=== PATIENT | male | born 1975 | race Asian ===

== ENCOUNTER → 2021-10-23 16:22 | Outpatient (CLI) | payer OTHER, SELFPAY ==
[2021-10-23 17:20] LABS: Hematocrit 34.5 % (41-53); Hemoglobin 10.9 g/dL (13.5-17.5); Mean Corpuscular HGB Conc 31.5 % (30-36); Mean Corpuscular Hemoglobin 21.4 PG (26-34); Mean Corpuscular Volume 67.8 fL (80-100); Platelet Count 360 X10^3/uL (150-400); Red Blood Cell Count 5.08 X10^6/uL (4.5-5.9); Red Cell Distribution Width 19.7 % (11.6-14.8); White Blood Cell Count 5.5 X10^3/uL (4.5-11.0)
[2021-10-23 17:38] LABS: HEMOLYSIS < 15 (0-50); Iron 36 ug/dL (49-181)
[2021-10-23 17:41] LABS: Alanine Aminotransferase 36 IU/L (<50); Albumin 4.4 g/dL (3.5-5.0); Albumin Globulin Ratio 1.4 (1.0-2.8); Alkaline Phosphatase 54 U/L (38-126); Aspartate Aminotransferase 36 IU/L (17-59); BUN Creatinine Ratio 12.3 (6-22); Bilirubin Total 0.3 mg/dL (0.2-1.3); Blood Urea Nitrogen 13 mg/dL (9-20); Calcium 8.6 mg/dL (8.4-10.2); Carbon Dioxide 29 mmol/L (22-32); Chloride 106 mmol/L (98-107); Cholesterol 186 mg/dL (140-199); Estimated Glomerular Filt Rate > 60 mL/min (>60); Globulin 3.1 g/dL (1.7-4.1); Glucose 89 mg/dL (70-100); HDL Cholesterol 38 mg/dL (40-60); HEMOLYSIS < 15 (0-50); LDL Cholesterol Calculated 120 mg/dL (<100); Potassium 4.3 mmol/L (3.4-5.1); Sodium 139 mmol/L (137-145); Total Protein 7.5 g/dL (6.3-8.2); Triglycerides 138 mg/dL (35-150)
[2021-10-23 17:48] LABS: Percent Iron Saturation 8 % (20-50); Total Iron Binding Capacity 475 ug/dL (261-462); Transferrin 339 mg/dL (206-381)
[2021-10-23 18:11] LABS: TSH w/ Reflex to FT4 1.52 uIU/mL (0.47-4.68)
[2021-10-23 18:17] LABS: Ferritin 5 ng/mL (18-464)
== END ==
PROVIDERS: PCP Internal Medicine; Referring Provider Internal Medicine; Visit Provider Internal Medicine
DX: D64.9 Anemia, unspecified (principal); K64.4 Residual hemorrhoidal skin tags; K92.2 Gastrointestinal hemorrhage, unspecified; Z00.00 Encounter for general adult medical examination without abnormal findings
CPT/HCPCS: 36415; 80053; 80061; 82728; 83540; 83550; 84443; 85027

== ENCOUNTER → 2022-03-05 11:01 | Outpatient (CLI) | payer OTHER, SELFPAY ==
[2022-03-05 11:33] LABS: Hematocrit 37.9 % (41-53); Hemoglobin 12.3 g/dL (13.5-17.5); Mean Corpuscular HGB Conc 32.5 % (30-36); Mean Corpuscular Hemoglobin 24.4 PG (26-34); Mean Corpuscular Volume 74.9 fL (80-100); Platelet Count 274 X10^3/uL (150-400); Red Blood Cell Count 5.06 X10^6/uL (4.5-5.9); White Blood Cell Count 4.7 X10^3/uL (4.5-11.0)
[2022-03-05 12:14] LABS: Ferritin 22 ng/mL (18-464); Testosterone 125 ng/dL (132-813)
[2022-03-05 12:21] LABS: HEMOLYSIS < 15 (0-50); Iron 62 ug/dL (49-181)
[2022-03-05 12:28] LABS: Transferrin 328 mg/dL (206-381); Vitamin B12 326 pg/mL (239-931)
[2022-03-05 12:38] LABS: Percent Iron Saturation 14 % (20-50); Total Iron Binding Capacity 433 ug/dL (261-462)
== END ==
PROVIDERS: PCP Internal Medicine; Referring Provider Internal Medicine; Visit Provider Internal Medicine
DX: D50.9 Iron deficiency anemia, unspecified (principal); K62.5 Hemorrhage of anus and rectum; K64.4 Residual hemorrhoidal skin tags
CPT/HCPCS: 36415; 82607; 82728; 83540; 83550; 84403; 85027

== ENCOUNTER → 2022-04-23 09:09 | Outpatient (CLI) | payer OTHER, SELFPAY ==
[2022-04-23 11:15] LABS: COVID19 -Nasal RAPID Negative (Negative)
== END ==
PROVIDERS: PCP Internal Medicine; Visit Provider Surgery
DX: Z01.812 Encounter for preprocedural laboratory examination (principal); Z20.822 Contact with and (suspected) exposure to COVID-19
CPT/HCPCS: 87635; C9803

== ENCOUNTER 2022-04-24 10:38 | Day surgery (SDC) | payer OTHER, SELFPAY ==
--- NOTE | 2022-04-24 | PATH_ITS ---
[facility] Accession Number: [id number] . 01 Material submitted: . rectum - RECTAL POLYP . 01 Diagnosis: Rectum, Polyp, Biopsy: Hyperplastic polyp. JNL 04/27/20222037 Local . 01 Electronically signed: . Briana Griffin MD, Pathologist NPI- [id number] . 01 Gross description: . RECTAL POLYP: Received in formalin is 1 fragment(s) of renae, soft tissue measuring 0.2 x 0.2 x 0.2 cm submitted entirely in 1 cassette(s) /CPE 04/25/2022 0704 Local . 01 Pathologist provided ICD-10: K62.1 . 01 CPT . 373292 Specimen Comment: A courtesy copy of this report has been sent to [facility] Pathology Performed at: 01 [facility] Cytology [address] [place] [address] [id number] MD Sami Mullins MD Phone: [phone]
[2022-04-24 11:14] VITALS: BP 131/86; PULSE 74; RESP 16; TEMP 36.6; O2SAT 97; BMI 34.5
[2022-04-24] MEDS: LACTATED RINGERS 1,000 ML 100 ML IV (11:23)
--- NOTE | 2022-04-24 11:42 | PM.HP.1 ---
History of Present Illness History of Present Illness Chief complaint: Colonoscopy Narrative: Mr. Hutchinson was seen in my office on 03/17/22. You may refer to this for further information. Nothing is changed in his health since then and briefly: he discussed with me that he has had bleeding per rectum for many years he [place]. Nothing was ever identified during workup. He is continuing to have the bleeding it is generally bright red blood describes it as ?a lot? of blood. Comes out in clots or mixed in with the stool. He says in fact that he has been having bleeding since last night along with the prep. He denies abdominal pain with the bleeding but on occasion it is there is some rectal discomfort. He has no family history of colon cancer. Patient History Medical History Encounter for general adult medical examination without abnormal findings GI bleed (~2007) Hemorrhoids Iron deficiency anemia Obesity (BMI 30.0-34.9) Family & Social History Family History Father History of heart disease Hyperlipidemia Hypertension Social History: household members spouse,children lives independently Yes Tobacco & Substance use: Smoking Status Former smoker alcohol intake current alcohol intake frequency a few times a week Substance Use Type does not use Meds Home Medications and Allergies Home Medications Medication Instructions Recorded Confirmed Type ferrous sulfate 325 mg (65 mg 325 mg PO DAILY 03/05/22 04/24/22 History iron) tablet Allergies Allergy/AdvReac Type Severity Reaction Status Date / Time Penicillins Allergy Rash Verified 04/24/22 11:09 Exam Vital Signs (past 8 hours): - 04/24/22 11:14 Temperature 97.9 F Pulse Rate 74 Respiratory Rate 16 Blood Pressure 131/86 Pulse Oximetry 97 Oxygen Delivery Method Room Air Oxygen Delivery Method Room Air Const General: cooperative, healthy appearing and comfortable HENOK Head: normal to inspection and laceration Eyes General: appearance normal, both eyes and all related structures Resp Effort & Inspection: normal respiratory effort and able to speak in complete sentences Cardio Pulses: radial pulses present GI Palpation: soft and No tender Assessment & Plan Assessment and plan (1) Iron deficiency anemia: Qualifiers: Iron deficiency anemia type: chronic blood loss Qualified Code(s): D50.0 - Iron deficiency anemia secondary to blood loss (chronic) Status: Acute (2) GI bleed: Qualifiers: GI bleed type/associated pathology: anorectal hemorrhage Qualified Code(s): K62.5 - Hemorrhage of anus and rectum Status: Acute Plan I have discussed with Mr. Hutchinson the risks benefits and alternatives of proceeding with a colonoscopy today. Due to the presence of bleeding today we may identify a source we may not. He is nearly 48 and this will be an adequate exam hopefully for the purposes of screening for colon cancer as well. I did discuss with him the risk of an incomplete exam as well as the risk of perforation. He understands and would like to proceed Time Spent With Patient Critical Care time: I spent a total of [] minutes of critical care time on this patient's care today; this time is exclusive of procedural time.
[2022-04-24 14:09] VITALS: BP 127/80; PULSE 60; RESP 13; TEMP 36.2; O2SAT 97
[2022-04-24 14:15] VITALS: BP 124/77; PULSE 58; RESP 12; O2SAT 97
--- NOTE | 2022-04-24 14:18 | PM.OP.COLON ---
Procedure & Clinicians Study performed: Colonoscopy Same procedure as scheduled: Yes Indications: Bright red blood per rectum. Screening for colon cancer Surgeon: Radha Carballo Procedure Notes Procedure in detail: Patient was taken to the endoscopy room and placed in a left lateral decubitus position. A time-out was performed. Monitored care was administered. Digital rectal exam was performed. There were external hemorrhoids seen. No masses or other findings on digital rectal. The colonoscope was placed into the anal canal and advanced. The cecum was reached and a photograph was taken of the appendiceal orifice. It seemed that there were red streaks on the inside of the colon from any time that the colonoscope touched the mucosa. Additionally upon withdrawal there was no mucosal abnormality seen, no polyps or diverticula. However in the rectum there was 1 small polyp was a hyperplastic appearance that was biopsied. It seemed to me the amount of bleeding from the small biopsy site was out of proportion to normal. I retroflexed the scope and took a photograph of internal hemorrhoids. The the scope was then withdrawn. The patient did well and went in good condition to the postoperative care unit Scope withdrawal time: 15 minutes Specimen(s): other (1. rectal polyp) Complications: none Post-procedure Recommendations: Colonoscopy in 10 years Plan for aftercare: 1. In the context of chronic anemia and the bleeding I saw from the biopsy site in the absence of any other positive findings from an extensive workup for GI bleeding, I am making a referral to hematology to evaluate for a bleeding disorder. 2. Continue the fiber supplements and 3. Consider capsule endoscopy if 1 has not been done. He has had a negative EGD and I do not think we need to repeat it unless there was some change.
[2022-04-24 14:20] VITALS: BP 130/83; PULSE 59; RESP 14; O2SAT 97
[2022-04-24 14:23] VITALS: BP 121/70; PULSE 63; RESP 99; O2SAT 97
== END 2022-04-24 14:35 | disposition home or self-care (01) ==
PROVIDERS: PCP Internal Medicine; Referring Provider Surgery; Visit Provider Surgery
PROC: 0DJD8ZZ Inspection of Lower Intestinal Tract, Via Natural or Artificial Opening Endoscopic (ICD-10-PCS; CPT 45378; principal; 2022-04-24 11:45)
DX: K62.5 Hemorrhage of anus and rectum (principal); K64.8 Other hemorrhoids; D50.9 Iron deficiency anemia, unspecified; K62.1 Rectal polyp
CPT/HCPCS: 45380; J2704

== ENCOUNTER → 2022-05-22 07:21 | Outpatient (CLI) | payer OTHER, SELFPAY ==
[2022-05-22 08:42] LABS: Add Manual Diff / Slide Review NO; Basophils Absolute Auto 0 /uL (0-100); Basophils Percent Auto 0.4 % (0-2); Eosinophils Absolute Auto 300 /uL (0-450); Eosinophils Percent Auto 3.8 % (2-4); Hematocrit 39.6 % (41-53); Hemoglobin 13.2 g/dL (13.5-17.5); Lymphocytes Absolute Auto 1000 /uL (1100-4500); Lymphocytes Percent Auto 14.8 % (25-40); Mean Corpuscular HGB Conc 33.4 % (30-36); Mean Corpuscular Hemoglobin 27.2 PG (26-34); Mean Corpuscular Volume 81.5 fL (80-100); Monocytes Absolute Auto 500 /uL (0-900); Monocytes Percent Auto 7.1 % (3-14); Neutrophils Absolute Auto 5100 /uL (1500-7000); Neutrophils Percent Auto 73.9 % (50-75); Platelet Count 289 X10^3/uL (150-400); Red Blood Cell Count 4.86 X10^6/uL (4.5-5.9); Red Cell Distribution Width 19.3 % (11.6-14.8); White Blood Cell Count 6.9 X10^3/uL (4.5-11.0)
== END ==
PROVIDERS: PCP Internal Medicine; Referring Provider Internal Medicine; Visit Provider Internal Medicine
DX: D50.9 Iron deficiency anemia, unspecified (principal); K92.2 Gastrointestinal hemorrhage, unspecified
CPT/HCPCS: 36415; 85025

== ENCOUNTER → 2022-05-22 14:58 | Outpatient (CLI) | payer OTHER, SELFPAY ==
[2022-05-22 16:15] LABS: HEMOLYSIS < 15 (0-50); Iron 364 ug/dL (49-181)
[2022-05-22 16:18] LABS: Prothrombin Time 11.7 SECONDS (10.1-12.7)
[2022-05-22 16:20] LABS: PTT Partial Thromboplastin Tim 31 SECONDS (26-36)
[2022-05-22 16:27] LABS: Total Iron Binding Capacity 424 ug/dL (261-462); Transferrin 313 mg/dL (206-381)
[2022-05-22 16:45] LABS: Percent Iron Saturation 86 % (20-50)
[2022-05-22 16:51] LABS: Ferritin 45 ng/mL (18-464); Testosterone 183 ng/dL (132-813)
[2022-05-22 17:06] LABS: Vitamin B12 365 pg/mL (239-931)
[2022-05-22 17:30] LABS: Follicle Stimulating Hormone 8.34 mIU/mL; Luteinizing Hormone 3.95 mIU/mL
== END ==
PROVIDERS: PCP Internal Medicine; Referring Provider Internal Medicine; Visit Provider Internal Medicine
DX: K92.2 Gastrointestinal hemorrhage, unspecified (principal); D50.9 Iron deficiency anemia, unspecified; D69.9 Hemorrhagic condition, unspecified; R79.89 Other specified abnormal findings of blood chemistry
CPT/HCPCS: 36415; 82607; 82728; 83001; 83002; 83540; 83550; 84146; 84403; 85025; 85610; 85730

== ENCOUNTER → 2023-08-16 15:33 | Outpatient (CLI) | payer OTHER, SELFPAY ==
[2023-08-16 16:27] LABS: Hematocrit 35.4 % (41-53); Hemoglobin 11.1 g/dL (13.5-17.5); Mean Corpuscular HGB Conc 31.5 % (30-36); Mean Corpuscular Volume 73.2 fL (80-100); Platelet Count 356 X10^3/uL (150-400); Red Blood Cell Count 4.83 X10^6/uL (4.5-5.9); Red Cell Distribution Width 16.5 % (11.6-14.8); White Blood Cell Count 5.6 X10^3/uL (4.5-11.0)
[2023-08-16 16:58] LABS: Alanine Aminotransferase 35 IU/L (<50); Albumin 4.1 g/dL (3.5-5.0); Albumin Globulin Ratio 1.3 (1.0-2.8); Alkaline Phosphatase 59 U/L (38-126); Aspartate Aminotransferase 31 IU/L (17-59); BUN Creatinine Ratio 11.1 (6-22); Bilirubin Total 0.4 mg/dL (0.2-1.3); Blood Urea Nitrogen 14 mg/dL (9-20); Calcium 8.3 mg/dL (8.4-10.2); Carbon Dioxide 26 mmol/L (22-32); Chloride 109 mmol/L (98-107); Estimated Glomerular Filt Rate > 60 mL/min (>60); Globulin 3.2 g/dL (1.7-4.1); Glucose 97 mg/dL (70-100); HEMOLYSIS < 15 (0-50); Sodium 140 mmol/L (137-145); Total Protein 7.3 g/dL (6.3-8.2)
[2023-08-16 17:28] LABS: TSH w/ Reflex to FT4 2.09 uIU/mL (0.47-4.68)
[2023-08-16 17:29] LABS: Testosterone 270 ng/dL (71.8-623)
== END ==
PROVIDERS: PCP Internal Medicine; Referring Provider Internal Medicine; Visit Provider Internal Medicine
DX: R79.89 Other specified abnormal findings of blood chemistry (principal); R06.09 Other forms of dyspnea
CPT/HCPCS: 36415; 80053; 84403; 84443; 85027

== ENCOUNTER → 2023-09-30 07:47 | Outpatient (CLI) | payer OTHER, SELFPAY | LOC: RESP 07:48 | PROVIDERS: PCP Internal Medicine; Referring Provider Internal Medicine; Visit Provider Internal Medicine | DX: J98.01 Acute bronchospasm (principal); R06.09 Other forms of dyspnea | CPT/HCPCS: 94060; 94726; 94729 ==

== ENCOUNTER → 2024-01-17 07:36 | Outpatient (CLI) | payer OTHER, SELFPAY ==
[2024-01-17 08:33] LABS: BUN Creatinine Ratio 13.9 (6-22); Blood Urea Nitrogen 14 mg/dL (9-20); Calcium 8.9 mg/dL (8.4-10.2); Carbon Dioxide 26 mmol/L (22-32); Chloride 105 mmol/L (98-107); Estimated Glomerular Filt Rate > 60 mL/min (>60); Glucose 91 mg/dL (70-100); HEMOLYSIS 44 (0-50); Potassium 4.5 mmol/L (3.4-5.1); Sodium 138 mmol/L (137-145)
== END ==
PROVIDERS: PCP Internal Medicine; Referring Provider Internal Medicine; Visit Provider Internal Medicine
DX: I10 Essential (primary) hypertension (principal)
CPT/HCPCS: 36415; 80048

== ENCOUNTER → 2024-07-10 16:44 | Outpatient (CLI) | payer OTHER, SELFPAY ==
[2024-07-10 17:22] LABS: Hematocrit 35.7 % (41-53); Hemoglobin 11.1 g/dL (13.5-17.5); Mean Corpuscular HGB Conc 31.2 % (30-36); Mean Corpuscular Hemoglobin 22.2 PG (26-34); Mean Corpuscular Volume 71.1 fL (80-100); Platelet Count 379 X10^3/uL (150-400); Red Blood Cell Count 5.02 X10^6/uL (4.5-5.9); Red Cell Distribution Width 16.3 % (11.6-14.8); White Blood Cell Count 6.1 X10^3/uL (4.5-11.0)
[2024-07-10 17:36] LABS: Alanine Aminotransferase 83 IU/L (<50); Albumin 4.5 g/dL (3.5-5.0); Albumin Globulin Ratio 1.7 (1.0-2.8); Alkaline Phosphatase 61 U/L (38-126); Aspartate Aminotransferase 53 IU/L (17-59); BUN Creatinine Ratio 9.8 (6-22); Bilirubin Total 0.5 mg/dL (0.2-1.3); Blood Urea Nitrogen 10 mg/dL (9-20); Calcium 8.9 mg/dL (8.4-10.2); Carbon Dioxide 28 mmol/L (22-32); Chloride 105 mmol/L (98-107); Cholesterol 216 mg/dL (140-199); Estimated Glomerular Filt Rate > 60 mL/min (>60); Globulin 2.7 g/dL (1.7-4.1); Glucose 88 mg/dL (70-100); HDL Cholesterol 36 mg/dL (40-60); HEMOLYSIS < 15 (0-50); LDL Cholesterol Calculated 118 mg/dL (<100); Potassium 4.8 mmol/L (3.4-5.1); Sodium 140 mmol/L (137-145); Total Protein 7.2 g/dL (6.3-8.2); Triglycerides 308 mg/dL (35-150)
[2024-07-10 18:07] LABS: Prostate Specific Antigen Scrn 1.32 ng/mL (0.1-4.0)
== END ==
PROVIDERS: PCP Internal Medicine; Referring Provider Internal Medicine; Visit Provider Internal Medicine
DX: I10 Essential (primary) hypertension (principal); K92.2 Gastrointestinal hemorrhage, unspecified; Z12.5 Encounter for screening for malignant neoplasm of prostate
CPT/HCPCS: 36415; 80053; 80061; 85027; G0103

== ENCOUNTER → 2024-10-04 09:11 | Outpatient (CLI) | payer OTHER, SELFPAY ==
[2024-10-04 10:28] LABS: Hematocrit 30.5 % (41-53); Hemoglobin 9.7 g/dL (13.5-17.5); Mean Corpuscular HGB Conc 31.7 % (30-36); Mean Corpuscular Hemoglobin 21.8 PG (26-34); Mean Corpuscular Volume 68.9 fL (80-100); Platelet Count 383 X10^3/uL (150-400); Red Blood Cell Count 4.43 X10^6/uL (4.5-5.9); Red Cell Distribution Width 18.5 % (11.6-14.8)
[2024-10-04 10:49] LABS: HEMOLYSIS < 15 (0-50)
[2024-10-04 10:51] LABS: HEMOLYSIS < 15 (0-50); Iron 26 ug/dL (49-181)
[2024-10-04 10:55] LABS: Alanine Aminotransferase 64 IU/L (<50); Albumin 4.4 g/dL (3.5-5.0); Albumin Globulin Ratio 1.8 (1.0-2.8); Alkaline Phosphatase 57 U/L (38-126); Aspartate Aminotransferase 48 IU/L (17-59); Bilirubin Total 0.6 mg/dL (0.2-1.3); Bilirubin Unconjugated 0.3 mg/dL (0.0-1.1); Globulin 2.5 g/dL (1.7-4.1); Total Protein 6.9 g/dL (6.3-8.2)
[2024-10-04 11:01] LABS: Percent Iron Saturation 6 % (20-50); Total Iron Binding Capacity 440 ug/dL (261-462); Transferrin 365 mg/dL (206-381)
[2024-10-04 15:03] LABS: Ferritin 15 ng/mL (18-464)
== END ==
PROVIDERS: PCP Internal Medicine; Referring Provider Internal Medicine; Visit Provider Internal Medicine
DX: K62.5 Hemorrhage of anus and rectum (principal); R79.89 Other specified abnormal findings of blood chemistry; D50.0 Iron deficiency anemia secondary to blood loss (chronic)
CPT/HCPCS: 36415; 80076; 82728; 83540; 83550; 85027

== ENCOUNTER → 2024-10-17 12:30 | Outpatient (CLI) | payer OTHER, SELFPAY ==
--- NOTE | 2024-10-17 12:35 | DI.RAD.S_ITS ---
PROCEDURE: XR CHEST 2V INDICATIONS: WHEEZING TECHNIQUE: 2 views of the chest were acquired. COMPARISON: None. FINDINGS: Mild bilateral perihilar and lower lobe peribronchial thickening, some of which may be related expiratory result; however, bronchitis, viral infection, asthma or other process should be considered. Mild bibasilar subsegmental atelectasis. No pneumothorax, no pleural effusion, no lobar consolidation. Cardiopericardial silhouette and pulmonary vasculature within normal limits. Mild degenerative changes of the thoracic spine and shoulders. IMPRESSION: Mild peribronchial thickening as discussed above. Follow-up suggested. If symptoms persist or worsen, or there is high clinical suspicion of thoracic abnormality, CT chest could be performed. Dictated by: Rowdy Bermeo M.D. on 10/17/2024 at 21:57 Approved by: Rowdy Bermeo M.D. on 10/17/2024 at 22:00
[2024-10-17 13:37] LABS: Add Manual Diff / Slide Review NO; Basophils Absolute Auto 100 /uL (0-100); Eosinophils Absolute Auto 100 /uL (0-450); Eosinophils Percent Auto 2.3 % (2-4); Hematocrit 33.4 % (41-53); Hemoglobin 10.7 g/dL (13.5-17.5); Lymphocytes Absolute Auto 1300 /uL (1100-4500); Lymphocytes Percent Auto 24.4 % (25-40); Mean Corpuscular Hemoglobin 22.7 PG (26-34); Mean Corpuscular Volume 71.1 fL (80-100); Monocytes Absolute Auto 300 /uL (0-900); Monocytes Percent Auto 5.3 % (3-14); Neutrophils Absolute Auto 3700 /uL (1500-7000); Platelet Count 427 X10^3/uL (150-400); White Blood Cell Count 5.5 X10^3/uL (4.5-11.0)
[2024-10-17 13:41] LABS: Hemoglobin A1C% w Est Avg Glu 5.1 % (4.0-6.0)
[2024-10-17 14:04] LABS: Anisocytosis 2+
[2024-10-17 14:05] LABS: Microcytosis 1+; Ovalocytes 1+
[2024-10-17 14:07] LABS: Alanine Aminotransferase 68 IU/L (<50); Albumin 4.7 g/dL (3.5-5.0); Albumin Globulin Ratio 1.7 (1.0-2.8); Alkaline Phosphatase 59 U/L (38-126); Aspartate Aminotransferase 48 IU/L (17-59); Bilirubin Total 0.9 mg/dL (0.2-1.3); Blood Urea Nitrogen 12 mg/dL (9-20); Carbon Dioxide 25 mmol/L (22-32); Chloride 104 mmol/L (98-107); Estimated Glomerular Filt Rate > 60 mL/min (>60); Globulin 2.8 g/dL (1.7-4.1); Glucose 139 mg/dL (70-99); HEMOLYSIS < 15 (0-50); Potassium 4.9 mmol/L (3.4-5.1); Sodium 137 mmol/L (137-145); Total Protein 7.5 g/dL (6.3-8.2)
[2024-10-17 14:16] LABS: NT-proBNP (BNP-Adult 18+) < 20 pg/mL (<125)
[2024-10-17 14:42] LABS: Ferritin 21 ng/mL (18-464)
== END ==
PROVIDERS: PCP Family Medicine; Referring Provider Family Medicine; Visit Provider Family Medicine
DX: J98.11 Atelectasis (principal); R60.9 Edema, unspecified; R06.2 Wheezing; E66.9 Obesity, unspecified
CPT/HCPCS: 36415; 71046; 80053; 82728; 83036; 83880; 85025